=== PATIENT | male | born 2000 | race Caucasian/White ===

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

== ENCOUNTER 2019-07-27 12:52 | Emergency (ER) | payer OTHER, SELFPAY ==
[2019-07-27] MEDS ORDERED: Ventolin HFA Inhaler 60 PUFF INHALER ONE (13:31)
[2019-07-27] MEDS ORDERED: predniSONE 20 MG TAB ONE (13:31)
== END 2019-07-27 13:30 | disposition home or self-care (01) ==
LOC: MADERS 12:52
DX: J45.901 Unspecified asthma with (acute) exacerbation (principal); F17.210 Nicotine dependence, cigarettes, uncomplicated; F41.9 Anxiety disorder, unspecified; F32.9 Major depressive disorder, single episode, unspecified
CPT/HCPCS: 99284; J7512